=== PATIENT | female | born 1955 | race Caucasian/White ===

== ENCOUNTER → 2017-05-06 | Outpatient (CLI) | payer OTHER ==
[2017-05-06 16:18] VITALS: BP 106/65; PULSE 73; RESP 20; TEMP 97.1; BMI 27.8
--- NOTE | 2017-05-06 16:21 | P.BASOAP ---
Subjective Principal diagnosis: Morbid obesity Patient was seen approximately 2 months ago in the office. The patient had her band loosened from 5.5-4.5 mL because of symptoms of vomiting and dysphagia along with reflux. Her symptoms have resolved since then. No upper GI was performed. Denies pain. She describes a 40 pound weight gain since that time. She would like more fluid added to her band at this time. Objective - Vital Signs Vital signs: Vital Signs Temp 97.1 F L 05/06/17 15:58 Pulse 73 05/06/17 15:58 Resp 20 05/06/17 15:58 BP 106/65 05/06/17 15:58 Pulse Ox Intake & Output 05/05/17 05/06/17 05/06/17 18:59 06:59 18:59 Weight 80.513 kg - Exam Abdomen: Soft, nontender, nondistended Assessment/Plan (1) Morbid obesity Narrative/Plan: Will proceed with band adjustment today. Follow-up in 1-2 months. The patient's lap band port was palpated. The site was aseptically prepped. 1% lidocaine was infiltrated into the subcutaneous tissues through a diabetic syringe. The Quiros needle was advanced into the port. Aspiration took place. A total of 0.5 ml of fluid was added for a total of 5 mL. Pressure was held and a sterile dressing was applied. Plan: Date: 05/06/17 Initial Weight: 80.513 kg Initial BMI: 27.8 Current Weight: 80.513 kg Current BMI: 27.8 Type of Surgery: Total Volume in Band: 5.0 Previous Volume: 4.5 Volume Removed: 0 Volume Added: 0.5 Band Size:
== END ==
LOC: BARWHC3 15:48
PROVIDERS: ATTEND Surgery
DX: E66.01 Morbid (severe) obesity due to excess calories (principal); Z68.27 Body mass index [BMI] 27.0-27.9, adult
CPT/HCPCS: 99202

== ENCOUNTER → 2017-11-04 | Outpatient (CLI) | payer OTHER ==
[2017-11-04 15:54] VITALS: BP 120/70; PULSE 48; RESP 16; TEMP 98.4; BMI 28.1
--- NOTE | 2017-11-04 16:25 | P.BASOAP ---
Subjective Progress Note Date: 11/04/17 Principal diagnosis: Morbid obesity Patient her today requesting a laparoscopic cholecystectomy just. She has a few pounds since last visit. Denies nausea vomiting. No abdominal pain. No GERD. Objective - Vital Signs Vital signs: Vital Signs Temp 98.4 F 11/04/17 15:52 Pulse 48 L 11/04/17 15:52 Resp 16 11/04/17 15:52 BP 120/70 11/04/17 15:52 Pulse Ox Intake & Output 11/03/17 11/04/17 11/04/17 18:59 06:59 18:59 Weight 81.647 kg - Exam Abdomen: Soft, nontender, nondistended Assessment/Plan (1) Morbid obesity Narrative/Plan: Patient was previously too tight at 5.5. We'll add 0.3 for a total of 5.3 today. The patient's lap band port was palpated. The site was aseptically prepped. 1% lidocaine was infiltrated into the subcutaneous tissues through a diabetic syringe. The Quiros needle was advanced into the port. Aspiration took place. A total of 0.3 ml of fluid was added. Pressure was held and a sterile dressing was applied. Plan: Date: 11/04/17 Initial Weight: 80.513 kg Initial BMI: 27.8 Current Weight: 81.647 kg Current BMI: 28.1 Type of Surgery: Total Volume in Band: 5.3 Previous Volume: 5.0 Volume Removed: Volume Added: 0.3 Band Size:
== END | disposition home or self-care (01) ==
LOC: BARWHC3 15:34
PROVIDERS: ATTEND Surgery
DX: E66.01 Morbid (severe) obesity due to excess calories (principal); Z68.28 Body mass index [BMI] 28.0-28.9, adult
CPT/HCPCS: 99212

== ENCOUNTER → 2021-04-11 | Outpatient (CLI) | payer OTHER ==
--- NOTE | 2021-04-13 11:11 | MM ---
Reason for exam: screening (asymptomatic). Last mammogram was performed 8 years and 7 months ago. History: Patient is postmenopausal. Benign excisional biopsy of the left breast, 2009. Took hormonal contraceptives for 6 months. Physical Findings: A clinical breast exam by your physician is recommended on an annual basis and results should be correlated with mammographic findings. MG 3D Screening Mammo W/Cad Bilateral CC and MLO view(s) were taken. Prior study comparison: September 04, 2012, bilateral digital screening mammo w/CAD. The breast tissue is heterogeneously dense. This may lower the sensitivity of mammography. Finding: There is an equal density (isodense), indistinct round mass in the upper outer quadrant, middle position of the right breast. New finding since September 04, 2012. ASSESSMENT: Incomplete: need additional imaging evaluation, BI-RAD 0 RECOMMENDATION: Special view mammogram of the right breast. If lesion persists on supplemental views, image directed ultrasound is recommended. [facility] will attempt to contact patient to return for supplemental views and ultrasound if indicated.
== END | disposition home or self-care (01) ==
LOC: RADMAMWWP 16:28
PROVIDERS: ATTEND Family Medicine
DX: Z12.31 Encounter for screening mammogram for malignant neoplasm of breast (principal); Z78.0 Asymptomatic menopausal state; Z79.3 Long term (current) use of hormonal contraceptives
CPT/HCPCS: 77063; 77067

== ENCOUNTER → 2021-04-24 | Outpatient (CLI) | payer OTHER ==
--- NOTE | 2021-04-24 11:09 | MM ---
Reason for exam: additional evaluation requested from abnormal screening. Last mammogram was performed less than 1 month ago. History: Patient is postmenopausal. Benign excisional biopsy of the left breast, 2009. Took hormonal contraceptives for 6 months. Physical Findings: Nurse did not find any significant physical abnormalities on exam. MG 3D Work Up W/Cad RT Spot compression CC, spot compression MLO, and LM view(s) were taken of the right breast. Prior study comparison: April 11, 2021, bilateral MG 3d screening mammo w/cad. September 11, 2012, [facility] DIGITAL RIGHT MAMMOGRAM w/CAD. September 04, 2012, bilateral digital screening mammo w/CAD. There are scattered fibroglandular densities. The lateral asymmetric density becomes less defined. Precautionary 6 month follow up recommended. These results were verbally communicated with the patient and result sheet given to the patient on 04/24/21. ASSESSMENT: Probably benign, BI-RAD 3 RECOMMENDATION: Follow-up diagnostic mammogram of the right breast in 6 months.
== END | disposition home or self-care (01) ==
LOC: RADMAMWWP 10:23
PROVIDERS: ATTEND Family Medicine
DX: N64.89 Other specified disorders of breast (principal); Z78.0 Asymptomatic menopausal state; Z79.3 Long term (current) use of hormonal contraceptives
CPT/HCPCS: 77061; 77065

== ENCOUNTER → 2021-06-12 | Outpatient (CLI) | payer OTHER ==
[2021-06-12 14:50] VITALS: BP 111/71; PULSE 61; TEMP 97.1; BMI 25.9
--- NOTE | 2021-06-12 19:30 | P.BASOAP ---
Subjective Progress Note Date: 06/12/21 Principal diagnosis: Morbid obesity Patient returns for evaluation. Last seen October 2017. Patient had 0.3 cc added to her band for a total of 5.3. Lately he has had increased night cough and some reflux. Vomiting with both solids and liquids. Patient would like band loosened. Previous weight 180 weight today 166. Objective - Vital Signs Vital signs: Vital Signs Temp 97.1 F L 06/12/21 14:47 Pulse 61 06/12/21 14:47 Resp BP 111/71 06/12/21 14:47 Pulse Ox Intake & Output 06/12/21 06/12/21 06/13/21 06:59 18:59 06:59 Weight 75.296 kg - Exam Abdomen: Soft, nontender, nondistended Assessment/Plan (1) Morbid obesity Narrative/Plan: Options reviewed. Will empty the band at this time. Patient will consider band removal. If symptoms persist check upper GI. The patient's lap band port was palpated. The site was aseptically prepped. The Quiros needle was advanced into the port. Aspiration took place. A total of 4.4ml of fluid was Removed. Fluid came out quite slowly. Pressure was held and a sterile dressing was applied. Plan: Date: 06/12/21 Initial Weight: 80.513 kg Initial BMI: 27.8 Current Weight: 75.296 kg Current BMI: 25.9 Type of Surgery: Total Volume in Band: 5.3 Previous Volume: Volume Removed: Volume Added: Band Size:
== END ==
LOC: BARWHC3 14:36
PROVIDERS: ATTEND Surgery
DX: E66.01 Morbid (severe) obesity due to excess calories (principal); Z46.51 Encounter for fitting and adjustment of gastric lap band; Z68.25 Body mass index [BMI] 25.0-25.9, adult
CPT/HCPCS: 99212

== ENCOUNTER 2021-06-27 07:50 | Day surgery (SDC) | payer OTHER ==
[2021-06-27 08:26] VITALS: RESP 16; TEMP 96.8
[2021-06-27] MEDS ORDERED: LIDOCAINE 1% (10MG/ML) FOR IV START INTRADERMA ONE (08:29)
[2021-06-27] MEDS ORDERED: LACTATED RINGERS 1,000 ML IV ONE (08:29)
[2021-06-27] MEDS ORDERED: LACTATED RINGERS 1,000 ML IV SCH (08:30)
[2021-06-27] MEDS ORDERED: LIDOCAINE 1% (10MG/ML) FOR IV START INTRADERMA PRN (08:30)
[2021-06-27] MEDS ORDERED: PROPOFOL 10 MG/ML 20 ML VIAL IV ONE (08:42)
[2021-06-27] MEDS ORDERED: GLYCOPYRROLATE 0.2 MG/ML 2 ML VIAL ONE (08:42)
[2021-06-27] MEDS ORDERED: LIDOCAINE 1% INJ 10MG/ML (20 ML MDV) ONE (08:42)
--- NOTE | 2021-06-27 09:06 | P.PCN ---
Date of Procedure: 06/27/21 Procedure(s) Performed: Brief history: Patient is a pleasant 66-year-old white female scheduled for an elective upper endoscopy as well as colonoscopy as a part of evaluation of iron deficiency anemia. Procedure performed: Esophagogastroduodenoscopy with biopsy Colonoscopy Preoperative diagnosis: Iron deficiency anemia Anesthesia: MAC Procedure: After informed consent was obtained from the patient was brought into the endoscopy unit and IV sedation was administered by anesthesia under continuous monitoring. Initially upper endoscopy was done. The Olympus GF 160 video endoscope was inserted inserted into the mouth and esophagus intubated without any difficulty and was gradually advanced into the stomach and duodenum and carefully examined. The bulb and second part of the duodenum appeared normal. Biopsies were done from the duodenum to rule out celiac disease. The scope was then withdrawn into the stomach adequately insufflated with air and upon careful examination the antrum had mild gastritis and biopsies were done from this area. There was scattered erosions also identified. Mucosa of thed body, cardia and fundus appeared normal. The scope was then withdrawn into the esophagus. The GE junction was located at 40 cm to the incisors. It appeared regular with no erythema erosions or ulcerations. Rest of the esophagus appeared normal. Patient tolerated the procedure well. At this time the patient continued to remain sedation. Initial digital rectal examination was normal. Olympus CF 160 video colonoscope was then inserted into the rectum and gradually advanced to the cecum without any difficulty. Careful examination was performed as the scope was gradually being withdrawn. The prep was excellent. The cecum, ascending colon, transverse colon, descending colon, sigmoid colon and rectum appeared normal. Retroflexion was performed in the rectum and no lesions were noted. Patient tolerated the procedure well. Impression: 1. Upper endoscopy revealed antral erosive gastritis and small hiatal hernia 2. Colonoscopy was within normal limits with no evidence of colitis or colorectal neoplasia Recommendations: Findings of this examination were discussed with the patient as well as a family. She was advised to follow with the biopsy results. Recommended to have a repeat colonoscopy in 10 years. She will continue with iron supplements a regular basis and monitor CBC periodically.
[2021-06-27 09:51] VITALS: BP 109/70; PULSE 48
== END 2021-06-27 10:12 | disposition home or self-care (01) ==
LOC: ORWHC2ENDO 07:50
PROVIDERS: ATTEND Internal Medicine Gastroenterology
DX: K29.50 Unspecified chronic gastritis without bleeding (principal); K44.9 Diaphragmatic hernia without obstruction or gangrene; K21.9 Gastro-esophageal reflux disease without esophagitis; D50.9 Iron deficiency anemia, unspecified; Z98.84 Bariatric surgery status
CPT/HCPCS: 88305; 45378; 43239; J2001; J2704

== ENCOUNTER → 2021-07-20 | Outpatient (CLI) | payer OTHER ==
--- NOTE | 2021-07-20 11:59 | P.STRESS ---
- Stress Test Note Stress Test Results/Findings: Exam Performed: stress echo exercise Exam Date: 07/20/21 Reason for Exam: CP Height: 5 ft 7 in Weight: 170 kg Protocol: STRESS ECHO Stage: III Duration of Exercise: 7 Resting Heart Rate: 71 Resting Blood Pressure: 113/74 Maximum Achieved Heart Rate: 147 Maximum Achieved Blood Pressure: 162/76 85% PMHR: 132 100% PMHR: 155 METS: 7.9 Technologist Comment: Stress Test Results/Findings: Eccentric EKG shows sinus rhythm normal SC narrow QRS normal ST segments Patient exercised on a Robert protocol for 7 minutes Peak heart rate 147 beats a minute Normal blood pressure response to exercise No ECGischemia at peak exercise or recovery LV PVCs noted during recovery only with occasional ventricular couplets No nonsustained ventricular tachycardia Baseline 2-D echo showed normal LV systolic function without segmental wall motion abnormalities At peak exercise there was excellent augmentation of overall LV contractility without development of any wall motion abnormalities @Recovery regional global LV systolic function with normal Impression No ECG or echocardiographic evidence of ischemia LV PVCs during the recovery
== END | disposition home or self-care (01) ==
LOC: RADNMMAIN 09:15
PROVIDERS: ATTEND Family Medicine
DX: I49.3 Ventricular premature depolarization (principal)
CPT/HCPCS: 93351